=== PATIENT | male | born 1945 | race Caucasian/White ===

== ENCOUNTER → 2016-09-10 | Outpatient (CLI) | payer MEDICARE ==
--- NOTE | 2016-09-10 09:47 | KCIC ---
MR CERVICAL SPINE Indication: Neck pain with bilateral arm radiculopathy COMPARISON: Normal Technique: Sagittal T2, sagittal STIR, sagittal T1, and axial gradient echo imaging was obtained of the cervical spine. FINDINGS: There is reversal of cervical lordosis. Vertebral body heights are maintained. Overall bone marrow signal is within normal limits. The cord is normal in caliber with no signal abnormality identified. Visualized soft tissues of the neck are within normal limits. At C2-C3 there is no spinal stenosis. At C3-C4 there is bilateral facet arthropathy worse on the right. There is also right vertebral hypertrophy. This causes at least mild to moderate right foraminal stenosis. There is also a disc osteophyte complex which causes mild mass effect upon the cord. At C4-C5 there is a disc osteophyte complex causing mass effect upon the cord. There is also bilateral facet and uncovertebral hypertrophy causing at least mild to moderate bilateral foraminal stenosis. At C5-C6 there is a disc osteophyte complex causing mass effect upon the cord. At C6-C7 there is a discussed by complex which abuts the ventral surface of the cord but does not cause significant mass effect upon it. There is also right uncovertebral hypertrophy causing at least mild to moderate right foraminal stenosis. At C7-T1 there is no spinal stenosis. IMPRESSION: Multilevel degenerative disc and facet disease throughout the cervical spine. This is significant at C4-5 and C5-6 where there is mass effect upon the cord from disc osteophyte complexes. Details are level as above. Electronically signed by: Tito Rajan MD (09/10/2016 9:44 AM)
== END | disposition home or self-care (01) ==
LOC: KCIC MRI 07:53
PROVIDERS: ATTEND Neurological Surgery
DX: M25.78 Osteophyte, vertebrae (principal); M54.10 Radiculopathy, site unspecified; M50.321 Other cervical disc degeneration at C4-C5 level; M50.322 Other cervical disc degeneration at C5-C6 level
CPT/HCPCS: 72141